=== PATIENT | female | born 1975 | race Caucasian/White ===

== ENCOUNTER 2016-11-24 16:29 | Emergency (ER) | payer OTHER ==
[2016-11-24] MEDS ORDERED: MORPHINE SULFATE 4 MG/ML SYRINGE IVP STA (17:08)
--- NOTE | 2016-11-24 17:11 | ED ---
Upper Extremity HPI - General Chief Complaint: Extremity Injury, Upper Stated Complaint: Poss Broken Wrist Time Seen by Provider: 11/24/16 17:02 Source: patient, RN notes reviewed Mode of arrival: ambulatory Limitations: no limitations - History of Present Illness Initial Comments: Patient is a 41-year-old female presents to the emergency room for evaluation of right wrist pain and deformity. Patient states around 4 PM she fell down steps landing on her right hand. Patient states she did hit the back of her head but denies loss consciousness. Patient denies any headache. Patient denies nausea or vomiting. Patient denies changes in vision. Patient denies neck pain. Patient states she is having 10 out of 10 pain. Patient states her wrist appears deformed. Patient denies taking anything for pain. Patient denies any numbness or tingling in her fingers. Patient denies any other injuries during incident. Patient does state that she is left-handed. Patient denies any shoulder pain, elbow pain or proximal forearm pain. - Related Data Previous Rx's Medication Instructions Recorded HYDROcodone/APAP 5-325MG [Boston 1 tab PO Q6HR PRN #20 tab 11/24/16 5-325] Ibuprofen [Motrin] 600 mg PO Q6HR PRN #20 tab 11/24/16 Allergies Allergy/AdvReac Type Severity Reaction Status Date / Time No Known Allergies Allergy Verified 11/24/16 17:49 Review of Systems ROS Statement: Those systems with pertinent positive or pertinent negative responses have been documented in the HPI. ROS Other: All systems not noted in ROS Statement are negative. Past Medical History Past Medical History: No Reported History History of Any Multi-Drug Resistant Organisms: None Reported Past Surgical History: No Surgical Hx Reported Past Psychological History: No Psychological Hx Reported Smoking Status: Current every day smoker Past Alcohol Use History: Occasional Past Drug Use History: None Reported General Exam - General Exam Comments Initial Comments: Sitting in exam room, no acute distress. Limitations: no limitations General appearance: alert, in no apparent distress Head exam: Present: atraumatic, normocephalic, normal inspection Eye exam: Present: normal appearance, PERRL, EOMI Pupils: Present: normal accommodation ENT exam: Present: normal exam Neck exam: Present: normal inspection Respiratory exam: Absent: respiratory distress Right Shoulder Exam: Present: normal inspection Upper Arm exam: Present: normal inspection Elbow exam: Present: normal inspection Hand Wrist exam: Present: tenderness (Distal radial ulnar pain on palpation plus deformity.), swelling, deformity. Absent: normal inspection, full ROM Neurosensory exam: Present: 2-point discrimination Vascular: Present: normal capillary refill (Capillary refill less than 2 seconds ), radial pulse (2+), ulnar pulse (2+). Absent: vascular compromise Back exam: Present: normal inspection Neurological exam: Present: alert, oriented X3, CN II-XII intact Psychiatric exam: Present: normal affect, normal mood Skin exam: Present: warm, dry, intact, normal color. Absent: rash Course Vital Signs 11/24/16 11/24/16 16:48 16:55 Temperature 98.4 F Pulse Rate 86 Respiratory 20 Rate Blood Pressure 110/58 O2 Sat by Pulse 98 Oximetry - Reevaluation(s) Reevaluation #1: 11/24/16 18:17 Right wrist x-ray: Impacted transverse fracture of the distal radial metaphysis. There is 1 cm posterior displacement of the distal fragments. There is comminution. There is ulnar styloid process chip fracture. Dr. Garrido discussed case with Dr. Najera who is currently on his way to reduce fracture. Patient updated on results and plan. Patient states she is still having pain. Patient ordered Toradol. Medical Decision Making - Medical Decision Making Patient is a 41-year-old female presents to the emergency room for evaluation of right wrist pain and deformity. Patient did have impacted transverse fracture distal radius that was reduced by Dr. Najera. Patient also states that she hit her head during the incident. Patient declined any further workup for head trauma. Patient denies loss consciousness, nausea, vomiting, changes in vision. Patient denies any headache at the moment. Patient denies any neck pain at the moment. Patient has no neuro deficits. Patient will follow-up with Dr. Najera on Tuesday. Patient states she understands everything that was discussed with her. Return parameters discussed. Case discussed Dr. Garrido. Disposition Clinical Impression: Closed fracture distal radius and ulna Disposition: HOME SELF-CARE Condition: Good Instructions: Wrist Fracture in Adults (ED) Additional Instructions: Rest, Ice and Elevate. Take ibuprofen as needed for pain. Take Boston as needed for severe pain. Please follow-up with Dr. Najera on Tuesday. If new symptoms develop or symptoms worsen, please return to the ER. Prescriptions: HYDROcodone/APAP 5-325MG [[place] 5-325] 1 tab PO Q6HR PRN #20 tab PRN Reason: Pain Ibuprofen [Motrin] 600 mg PO Q6HR PRN #20 tab PRN Reason: Pain Referrals: Jareth Najera MD [STAFF PHYSICIAN] - 1-2 days Time of Disposition: 19:18
[2016-11-24] MEDS ORDERED: KETOROLAC 30 MG/ML 1 ML VIAL IVP STA (18:06)
--- NOTE | 2016-11-24 18:09 | XR ---
EXAMINATION TYPE: XR wrist complete RT DATE OF EXAM: 11/24/2016 COMPARISON: NONE HISTORY: Pain TECHNIQUE: 4 views FINDINGS: There is an impacted transverse fracture of the distal radial metaphysis. There is 1 cm pos terior displacement of the distal fragments. There is comminution. There is ulnar styloid process chi p fracture. Carpal bones appear intact. Scaphoid is intact. IMPRESSION: Fractures of the distal radius and ulna as above. Impaction and comminution of the radius fracture.
--- NOTE | 2016-11-24 19:16 | P.CNOR ---
History of Present Illness - [facility] Consult date: 11/24/16 Consult reason: joint pain, fracture History of present illness: Ms. Valle is a 41-year-old [id number] female who fell down 12 stairs today on carpet and sustained a fracture of her right wrist. She was brought into emergency room where x-rays were taken and show a displaced and angulated fracture of the distal radius and ulnar styloid fracture. There appears to be some dorsal comminution of the distal radius fracture with no obvious intra- articular extension. Scaphoid appeared to be normal. I was consulted for further evaluation and treatment as well as reduction area she did fall down the stairs but only complains of minor aches and pains of the upper back and her leg speech is able to move the other 3 extremities fully without problem. She has no other significant complaints. Review of Systems Constitutional: Denies chills, Denies fever Eyes: denies blurred vision, denies pain Ears, nose, mouth and throat: Denies headache, Denies sore throat Respiratory: Denies cough Gastrointestinal: Denies abdominal pain, Denies diarrhea, Denies nausea, Denies vomiting Genitourinary: Denies dysuria, Denies hematuria Past Medical History Past Medical History: No Reported History History of Any Multi-Drug Resistant Organisms: None Reported Past Surgical History: No Surgical Hx Reported Past Psychological History: No Psychological Hx Reported Smoking Status: Current every day smoker Past Alcohol Use History: Occasional Past Drug Use History: None Reported Medications and Allergies Home Medications Medication Instructions Recorded Confirmed Type No Known Home Medications [No 11/24/16 11/24/16 History Known Home Medications] Allergies Allergy/AdvReac Type Severity Reaction Status Date / Time No Known Allergies Allergy Verified 11/24/16 17:49 Physical Examination Examination is limited to the right upper extremity. She has obvious swelling and deformity of the right distal radius. She is able to move her fingers in flexion and extension fairly well but does use pain at the wrist area she is unable to move the wrist without significant pain. Elbow is nontender and atraumatic area she also has normal findings of the right shoulder. No lacerations or open injuries are noted. Intact The refill less than 2 seconds in all digits and intact radial pulse. Intact sensation throughout the median radial and ulnar distributions. Results - Diagnostic results Wrist/Hand x-ray: report reviewed, image reviewed (X-rays show a slightly impacted it dorsally angulated fracture of the distal radius and a small chip off of the ulnar styloid.) Assessment and Plan (1) Closed fracture distal radius and ulna Narrative/Plan: I have discussed the planned treatment of closed reduction of the right distal radius and ulnar fracture with Ms. Valle in detail. I have warned her of the risks of possible displacement and cast problems associated with splinting area these are inclusive of limited to department syndrome, or vascular compromise, and loss of reduction of the fracture requiring operative intervention. I have told her that there is somewhat of a high likelihood that she will require surgery on this. She agreed to proceed with closed reduction of distal radius. Therefore, under sterile conditions using a Betadine prep, the wrist was anesthetized using a hematoma block of 1% lidocaine without epinephrine. She tolerated this procedure well. Subsequent, the fracture was reduced using finger traps and counter traction weight. The fracture was able to be reduced fairly well although postreduction x-rays are pending at the time of this dictation. Plan is for follow-up in 5 days in the office for x-rays in the splint. Appropriate Pain medications were given and instructions given for cast care and elevation and icing. She is to return turned to the ER or the office should she extremes any kind of neurovascular compromise. Such symptoms were discussed and described with her. All her questions were answered prior to her being discharged. Status: Acute
--- NOTE | 2016-11-24 19:20 | XR ---
EXAMINATION TYPE: XR wrist complete RT DATE OF EXAM: 11/24/2016 COMPARISON: Today HISTORY: Fracture TECHNIQUE: 2 views FINDINGS: 2 views through the cast show good anatomic reduction of the distal radius and ulna fractur es. Fragments appear in reasonable anatomic position. IMPRESSION: Satisfactory reduction. No complicating process seen.
[2016-11-24 19:41] VITALS: BP 116/60; PULSE 75; RESP 18; TEMP 98.5
== END 2016-11-24 19:41 | disposition home or self-care (01) ==
LOC: EC 16:29
DX: S59.201A Unspecified physeal fracture of lower end of radius, right arm, initial encounter for closed fracture (principal); S52.611A Displaced fracture of right ulna styloid process, initial encounter for closed fracture; F17.200 Nicotine dependence, unspecified, uncomplicated; W10.9XXA Fall (on) (from) unspecified stairs and steps, initial encounter
CPT/HCPCS: 99284; 25605; 96374; 96375; 73110; J2270; J1885